=== PATIENT | male | born 1975 | race Two or more races ===

== ENCOUNTER → 2017-12-31 10:47 | Outpatient (CLI) | payer OTHER ==
[~2017-12-31 10:47] MED LIST: CYMBALTA60 MG PO
== END | disposition home or self-care (01) ==
LOC: LAB 10:47
DX: C67.9 Malignant neoplasm of bladder, unspecified (principal)

== ENCOUNTER 2018-01-05 08:35 | Outpatient (CLI) | payer OTHER | END 2018-01-05 08:56 | disposition home or self-care (01) | LOC: TOM 08:35 | DX: C67.9 Malignant neoplasm of bladder, unspecified (principal); R31.0 Gross hematuria ==

== ENCOUNTER 2018-01-07 09:34 | Day surgery (SDC) | payer OTHER | END 2018-01-07 18:25 | disposition home or self-care (01) | LOC: CIR.AMB 09:34 | DX: C67.6 Malignant neoplasm of ureteric orifice (principal) ==

== ENCOUNTER 2023-06-23 06:42 | Emergency (ER) | payer OTHER ==
[~2023-06-23] VITALS: Ht 182.9 cm; Wt 93.9 kg
[2023-06-23 09:18] LABS: HEMATOCRIT 42.9 % (39.0-48.0); HEMOGLOBIN 14.9 g/dL (13-16.00); MEAN CELL VOLUME 95.4 fL (80.0-100.00); MEAN CORPUSCULAR HEMOGLOBIN 33.3 pg (27.00-32.0); MEAN CORPUSCULAR HGB CONC 34.9 g/dl (32.0-36.0); PLATELET COUNT 172 K/uL (150-450); RED BLOOD COUNT 4.49 M/uL (4.00-6.00); RED CELL DISTRIBUTION WIDTH 13.4 % (11.5-14.5)
[2023-06-23] MEDS ORDERED: TUSNEL LIQUID178 ML PO (09:35)
[2023-06-23] MEDS ORDERED: OSEL75CA PO (09:35)
== END 2023-06-23 09:51 | disposition home or self-care (01) ==
LOC: ER 06:42
PROVIDERS: General Practice
DX: J10.1 Influenza due to other identified influenza virus with other respiratory manifestations (principal); Z91.013 Allergy to seafood; Z20.822 Contact with and (suspected) exposure to COVID-19